=== PATIENT | female | born 1945 | race Caucasian/White ===

== ENCOUNTER 2023-01-28 10:19 | Day surgery (SDC) | payer OTHER, MEDICARE ==
[2023-01-25 09:09] VITALS: BMI 18.7
[2023-01-28 10:37] VITALS: RESP 18
[2023-01-28 11:35] VITALS: TEMP 97.4
[2023-01-28 11:54] VITALS: BP 110/60; PULSE 68
== END 2023-01-28 12:05 | disposition home or self-care (01) ==
LOC: FASU-ENDO 10:19
PROVIDERS: ATTEND Internal Medicine Gastroenterology
PROC: 0DBN8ZX Excision of Sigmoid Colon, Via Natural or Artificial Opening Endoscopic, Diagnostic (ICD-10-PCS; principal; 2023-01-28 10:57)
DX: K63.3 Ulcer of intestine (principal)
CPT/HCPCS: 88305-TC